=== PATIENT | female | born 1980 | race Caucasian/White ===

== ENCOUNTER 2018-01-23 14:33 | Emergency (ER) | payer MEDICAID ==
[~2018-01-23] VITALS: Ht 160 cm; Wt 95.0 kg
[~2018-01-23 14:33] MED LIST: ALBU18HF2 INH; FLUT16SP2 BOTHNARES; HYDR-4353 PO; IBUP-1985 PO; OMEP20TA5 PO; TRAM50TA2 PO
[2018-01-23 14:42] VITALS: BP 119/56
== END 2018-01-23 16:09 | disposition home or self-care (01) ==
LOC: ER 14:33
DX: S82.65XA Nondisplaced fracture of lateral malleolus of left fibula, initial encounter for closed fracture (principal); J45.909 Unspecified asthma, uncomplicated; R55 Syncope and collapse; I95.9 Hypotension, unspecified; Z88.2 Allergy status to sulfonamides; Z79.899 Other long term (current) drug therapy; Z87.440 Personal history of urinary (tract) infections; X50.1XXA Overexertion from prolonged static or awkward postures, initial encounter; Y93.89 Activity, other specified; Y92.89 Other specified places as the place of occurrence of the external cause; Y99.8 Other external cause status
CPT/HCPCS: 73590; 73610; 99284

== ENCOUNTER 2018-05-30 02:23 | Emergency (ER) | payer MEDICAID ==
[~2018-05-30] VITALS: Ht 160 cm; Wt 89.3 kg
[2018-05-30] MEDS ORDERED: ondansetron/PF 4mg/2ml inj IV ONE (02:55)
[2018-05-30] MEDS ORDERED: pantoprazole 40 MG vial IV ONE (02:55)
[2018-05-30] MEDS ORDERED: normal saline 1000ML IV soln IVB ONE (02:55)
[2018-05-30] MEDS ORDERED: morphine 4 MG/ML inj SYRINge IV ONE (02:55)
[2018-05-30] MEDS ORDERED: famotidine/PF 10 mg/ml inj IV ONE (02:55)
[2018-05-30 03:12] LABS: BASOPHILS # (AUTO) 0.1 X10'3 (0-0.2); BASOPHILS % (AUTO) 0.6 % (0-1); EOSINOPHILS # (AUTO) 0.1 X10'3 (0-0.9); EOSINOPHILS % (AUTO) 1.1 % (0-6); HEMOGLOBIN 13.4 g/dl (12.0-16.0); LYMPHOCYTES # (AUTO) 2.1 X10'3 (1.1-4.8); LYMPHOCYTES % (AUTO) 14.9 % (21-51); MEAN CORPUSCULAR HEMOGLOBIN 28.3 PG (27.0-31.0); MEAN CORPUSCULAR HGB CONC 33.4 g/dL (33.0-36.5); MEAN CORPUSCULAR VOLUME 84.6 FL (78-98); MEAN PLATELET VOLUME 7.4 FL (7.4-10.4); MONOCYTES # (AUTO) 0.7 X10'3 (0-0.9); MONOCYTES % (AUTO) 5.2 % (2-12); NEUTROPHILS # (AUTO) 10.9 X10'3 (1.8-7.7); NEUTROPHILS % (AUTO) 78.2 % (42-75); PLATELET COUNT 350 X10'3 (140-440); RED BLOOD COUNT 4.73 X10'6 (4.20-5.60); RED CELL DISTRIBUTION WIDTH 13.9 % (11.5-14.5)
[2018-05-30 03:14] LABS: CLARITY,URINE CLEAR (Clear); COLOR,URINE YELLOW (Yellow); GLUCOSE, URINE NEGATIVE (Neg); KETONES,URINE NEGATIVE (Neg); LEUKOCYTE ESTERASE ,URINE NEGATIVE (Neg); NITRITES, URINE NEGATIVE (Neg); OCCULT BLOOD,URINE LARGE (Neg); PROTEIN,URINE TRACE mg/dl (Neg); URINE HCG NEGATIVE (NEG); UROBILINOGEN,URINE 0.2 E.U/dL (0.2-1.0)
[2018-05-30 03:19] LABS: UA COLLECTION TYPE CLN CATCH MIDSTREAM
[2018-05-30 03:21] LABS: ALANINE AMINOTRANSFERASE 22 U/L (12-78); ALBUMIN 3.8 G/DL (3.4-5.0); ALBUMIN/GLOBULIN RATIO 1.1 (1.1-1.5); ALKALINE PHOSPHATASE 75 IU/L (46-116); ANION GAP 10 (8-16); ASPARTATE AMINO TRANSFERASE 15 U/L (10-37); BILIRUBIN,TOTAL 0.3 MG/DL (0.1-1.0); BLOOD UREA NITROGEN 24 MG/DL (7-18); BUN/CREATININE RATIO 20.9 (6.6-38.0); CALCIUM 9.5 MG/DL (8.5-10.1); CHLORIDE 104 MMOL/L (99-107); CREATININE 1.15 MG/DL (0.40-0.90); GLUCOSE 123 MG/DL (70-104); POTASSIUM 3.2 MMOL/L (3.5-5.1); SODIUM 140 MMOL/L (135-145); TOTAL CARBON DIOXIDE 25.6 MMOL/L (24-32); TOTAL PROTEIN 7.3 G/DL (6.4-8.2); eGFR 53 ML/MIN
[2018-05-30 03:21] LABS: MUCUS STRANDS FEW /LPF (Neg); SQUAMOUS EPITHELIAL CELL,UR MANY /LPF (FEW)
[2018-05-30 03:22] LABS: COARSE GRANULAR CAST 0-3 /LPF (NEGATIVE)
[2018-05-30 03:30] LABS: BACTERIA,URINE 1+ /HPF (Neg); WBC,URINE 0-4 /HPF (0-4); YEAST MODERATE /HPF (NEGATIVE)
[2018-05-30] MEDS ORDERED: ketorolac trometh. 30mg/ml inj. IV ONE (03:45)
[2018-05-30] MEDS ORDERED: haloperidol lactate 5mg/ml inj IM ONE (03:50)
[2018-05-30] MEDS ORDERED: LORazepam 2 mg/ml vial IV ONE (03:50)
[2018-05-30] MEDS ORDERED: metoclopramide 5 mg/ml inj IV ONE (03:50)
[2018-05-30] MEDS ORDERED: potassium Cl 20 mEq SR tablet PO STA (04:29)
[2018-05-30 04:50] LABS: URINE AMPHETAMINE SCREEN NEGATIVE (Neg); URINE BARBITUATE SCREEN NEGATIVE (Neg); URINE BENZODIAZEPINES SCREEN NEGATIVE (Neg); URINE CANNABINOID SCREEN NEGATIVE (Neg); URINE COCAINE SCREEN NEGATIVE (Neg); URINE METHADONE SCREEN NEGATIVE (Neg); URINE OPIATE SCREEN NEGATIVE (Neg); URINE PHENCYCLIDINE SCREEN NEGATIVE (Neg)
[2018-05-30] MEDS ORDERED: KETO10TA2 PO (05:44)
[2018-05-30] MEDS ORDERED: HYDR-4353 PO (05:44)
[2018-05-30] MEDS ORDERED: TADA20TA PO (05:44)
[2018-05-30] MEDS ORDERED: ONDA4TAB6 PO (05:44)
--- NOTE | 2018-05-30 06:01 | NUR ---
DR MACK TALKING WITH PT ABOUT DC PLAN. PT CALLING HER TO COME GET HER. PT REPORTS MINIMAL PAIN NOW.
[2018-05-30 06:04] VITALS: BP 111/71
--- NOTE | 2018-05-30 07:00 | NUR ---
HERE FOR DISCHARGE. DISCHARGE PAPERWORK WITH PATIENT BELONGINGS. GETTING DRESSED FOR DEPARTURE. IV REMOVED WITH TIP INTACT.
== END 2018-05-30 07:02 | disposition home or self-care (01) ==
LOC: ER 02:23
DX: E87.6 Hypokalemia (principal); N13.2 Hydronephrosis with renal and ureteral calculous obstruction; R11.10 Vomiting, unspecified; J45.909 Unspecified asthma, uncomplicated; Z88.2 Allergy status to sulfonamides; Z79.899 Other long term (current) drug therapy
CPT/HCPCS: 36415; 74176; 80053; 80305; 81001; 81025; 85025; 96361; 96372; 96374; 96375; 99284; C9113; J1630; J1885; J2060; J2270; J2405; J2765; J3490; J7030

== ENCOUNTER 2020-05-22 19:45 | Emergency (ER) | payer MEDICAID ==
[~2020-05-22] VITALS: Ht 160 cm; Wt 77.2 kg
[~2020-05-22 19:45] MED LIST changes: +KETO10TA2 PO; +ONDA4TAB6 PO; +TADA20TA PO
--- NOTE | 2020-05-22 20:07 | NUR ---
report: [id number]
== END 2020-05-22 22:29 | disposition home or self-care (01) ==
LOC: ER 19:46
DX: S66.911A Strain of unspecified muscle, fascia and tendon at wrist and hand level, right hand, initial encounter (principal); J45.909 Unspecified asthma, uncomplicated; Z87.440 Personal history of urinary (tract) infections; Z88.2 Allergy status to sulfonamides; Z79.899 Other long term (current) drug therapy; Y04.8XXA Assault by other bodily force, initial encounter; Y93.89 Activity, other specified; Y92.89 Other specified places as the place of occurrence of the external cause; Y99.8 Other external cause status
CPT/HCPCS: 73090; 73130; 99284

== ENCOUNTER 2020-12-05 21:04 | Emergency (ER) | payer MEDICAID ==
[~2020-12-05] VITALS: Ht 160 cm; Wt 80.0 kg
[2020-12-05 21:18] VITALS: BP 138/80
[2020-12-05] MEDS ORDERED: ketorolac tromethamine 15mg/ml inj. IM ONE (21:55)
== END 2020-12-05 22:48 | disposition home or self-care (01) ==
LOC: ER 21:04
DX: M25.571 Pain in right ankle and joints of right foot (principal); J45.909 Unspecified asthma, uncomplicated; Z87.440 Personal history of urinary (tract) infections; Z88.2 Allergy status to sulfonamides; Z79.899 Other long term (current) drug therapy
CPT/HCPCS: 29505; 73564; 96372; 99283; J1885

== ENCOUNTER 2022-08-31 00:41 | Emergency (ER) | payer MEDICAID ==
[~2022-08-31] VITALS: Ht 160 cm; Wt 80.0 kg
[~2022-08-31 00:41] MED LIST changes: +OMEP20TA43 PO; -OMEP20TA5 PO
[2022-08-31 01:11] LABS: CLARITY,URINE SLIGHTLY CLOUDY (Clear); COLOR,URINE YELLOW (Yellow); GLUCOSE, URINE NEGATIVE (Neg); KETONES,URINE NEGATIVE (Neg); LEUKOCYTE ESTERASE ,URINE NEGATIVE (Neg); NITRITES, URINE NEGATIVE (Neg); OCCULT BLOOD,URINE LARGE (Neg); PROTEIN,URINE NEGATIVE (Neg); UROBILINOGEN,URINE 0.2 E.U/dL (0.2-1.0)
[2022-08-31 01:13] LABS: BASOPHILS # (AUTO) 0.1 X10'3 (0-0.2); BASOPHILS % (AUTO) 0.5 % (0-1); EOSINOPHILS # (AUTO) 0.2 X10'3 (0-0.9); EOSINOPHILS % (AUTO) 1.6 % (0-6); HEMATOCRIT 38.1 % (35.0-45.0); HEMOGLOBIN 12.9 g/dl (12.0-16.0); LYMPHOCYTES # (AUTO) 2.9 X10'3 (1.1-4.8); LYMPHOCYTES % (AUTO) 28.5 % (21-51); MEAN CORPUSCULAR HEMOGLOBIN 30.1 PG (27.0-31.0); MEAN CORPUSCULAR VOLUME 88.6 FL (78-98); MEAN PLATELET VOLUME 7.8 FL (7.4-10.4); MONOCYTES # (AUTO) 0.8 X10'3 (0-0.9); MONOCYTES % (AUTO) 7.3 % (2-12); NEUTROPHILS # (AUTO) 6.4 X10'3 (1.8-7.7); NEUTROPHILS % (AUTO) 62.1 % (42-75); PLATELET COUNT 329 X10'3 (140-440); RED CELL DISTRIBUTION WIDTH 12.7 % (11.5-14.5); WHITE BLOOD COUNT 10.4 X10'3 (4.5-11.0)
[2022-08-31 01:15] LABS: URINE HCG NEGATIVE (NEG)
--- NOTE | 2022-08-31 01:16 | NUR ---
PT C/O ABD "SWELLING" X3 WEEKS, LAST BM TODAY WAS "HARD", CONSTIPATED SINCE APR. WHEN SHE FELT ROOMMATE PUT IMMODIUM IN HER FOOD. HAS BEEN TAKING STOOL SOFTNERS AND LAXATIVES WITH LITTLE RELIEF
[2022-08-31 01:17] LABS: UA COLLECTION TYPE CLN CATCH MIDSTREAM
[2022-08-31 01:19] LABS: MUCUS STRANDS FEW /LPF (Neg)
[2022-08-31 01:20] LABS: BACTERIA,URINE 1+ /HPF (Neg); RBC,URINE TNTC /HPF (0-2)
[2022-08-31 01:21] LABS: SQUAMOUS EPITHELIAL CELL,UR MODERATE /LPF (FEW); TRANSITIONAL EPI CELLS,URINE FEW /HPF; WBC,URINE 0-4 /HPF (0-4)
[2022-08-31 01:24] LABS: ALANINE AMINOTRANSFERASE 24 U/L (12-78); ALBUMIN 3.8 G/DL (3.4-5.0); ALBUMIN/GLOBULIN RATIO 1.2 (1.1-1.5); ALKALINE PHOSPHATASE 58 IU/L (46-116); ANION GAP 11 (8-16); ASPARTATE AMINO TRANSFERASE 16 U/L (10-37); BILIRUBIN,TOTAL 0.4 MG/DL (0.1-1.0); BLOOD UREA NITROGEN 20 MG/DL (7-18); BUN/CREATININE RATIO 14.8 (10.0-20.0); CALCIUM 8.5 MG/DL (8.5-10.1); CHLORIDE 106 MMOL/L (99-107); CREATININE 1.35 MG/DL (0.40-0.90); GLUCOSE 100 MG/DL (70-104); LIPASE 152 U/L (73-393); POTASSIUM 3.5 MMOL/L (3.5-5.1); SODIUM 144 MMOL/L (135-145); TOTAL CARBON DIOXIDE 27.1 MMOL/L (24-32); TOTAL PROTEIN 6.9 G/DL (6.4-8.2); eGFR 43 ML/MIN
[2022-08-31] MEDS ORDERED: bisacodyl 5mg tablet.DR PO ONE (01:50)
--- NOTE | 2022-08-31 02:43 | NUR ---
FLEETS ENEMA DONE, COMMODE AT BEDSIDE
--- NOTE | 2022-08-31 03:00 | NUR ---
Dr Cochran aware pt has not had bowel movement since fleets enema and she wishes to go home
[2022-08-31] MEDS ORDERED: ONDA8TAB13 PO (03:11)
[2022-08-31 03:26] VITALS: BP 148/91
== END 2022-08-31 03:29 | disposition home or self-care (01) ==
LOC: ER 00:42
DX: K59.00 Constipation, unspecified (principal); J45.909 Unspecified asthma, uncomplicated; Z98.890 Other specified postprocedural states; Z88.2 Allergy status to sulfonamides; Z79.899 Other long term (current) drug therapy
CPT/HCPCS: 36415; 74018; 80053; 81001; 81025; 83690; 85025; 99284

== ENCOUNTER 2024-03-01 16:31 | Emergency (ER) | payer MEDICAID ==
[~2024-03-01] VITALS: Ht 157.5 cm; Wt 85.2 kg
[~2024-03-01 16:31] MED LIST changes: +ONDA-245 PO
[2024-03-01 16:32] VITALS: BP 135/71; PULSE 99; O2SAT 98
[2024-03-01 19:26] VITALS: RESP 16
[2024-03-01] MEDS: ketorolac trometh 30MG/ML vial 30 MG/ML VIAL IM ONE (19:26)
[2024-03-01 19:39] VITALS: TEMP 98.2
== END 2024-03-01 19:44 | disposition home or self-care (01) ==
LOC: ER 16:32
DX: T74.21XA Adult sexual abuse, confirmed, initial encounter (principal); M25.511 Pain in right shoulder; J34.89 Other specified disorders of nose and nasal sinuses; R51.9 Headache, unspecified; J45.909 Unspecified asthma, uncomplicated; Z88.2 Allergy status to sulfonamides; Z79.52 Long term (current) use of systemic steroids; Z79.899 Other long term (current) drug therapy; Z98.890 Other specified postprocedural states; Y04.0XXA Assault by unarmed brawl or fight, initial encounter; Y93.89 Activity, other specified; Y92.89 Other specified places as the place of occurrence of the external cause; Y99.8 Other external cause status
CPT/HCPCS: 70486; 73030; 96372; 99285; J1885

== ENCOUNTER 2024-04-18 16:19 | Emergency (ER) | payer MEDICAID ==
[~2024-04-18] VITALS: Ht 160 cm; Wt 75.3 kg
[2024-04-18 16:25] VITALS: BP 133/66; PULSE 120; RESP 15; O2SAT 100
[2024-04-18] MEDS ORDERED: PERM60CR19 TOP (17:04)
[2024-04-18 17:29] VITALS: TEMP 98.5
== END 2024-04-18 17:09 | disposition home or self-care (01) ==
LOC: ER 16:19
DX: B86 Scabies (principal); J45.909 Unspecified asthma, uncomplicated; Z88.2 Allergy status to sulfonamides; Z98.890 Other specified postprocedural states
CPT/HCPCS: 99282

== ENCOUNTER 2024-07-12 17:35 | Emergency (ER) | payer MEDICAID ==
[~2024-07-12] VITALS: Ht 157.5 cm; Wt 90.1 kg
[~2024-07-12 17:35] MED LIST changes: +PERM60CR27 TOP
--- NOTE | 2024-07-12 18:53 | Physician Documentation ---
History of Present Illness Chief Complaint: Abdominal Pain w/vomiting Stated Complaint: ABD PAIN Time Seen by MD: 18:20 OK to notify your PCP?: Yes Primary Medical Doctor: Dr. Cardenas Source: patient, RN/MD, EMS, RN notes reviewed, EMS notes reviewed, old records Mode of Arrival: EMS Exam Limitations: no limitations HPI This patient has a longstanding history of abdominal pain, constipation. 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 Also family members all have GI issues. She has not had a colonoscopy. She denies any bloody stools or dark stools. Patient states since March on and off she has been having pain but the constipation pain is usually periumbilical or epigastric area this time her pains right lower quadrant. He has not appendix. Her pain comes and goes. She has been taking extra prune juice thinking that that would help but now it seems to be swelling in severe in the right lower quadrant so she came in for evaluation. She denies fevers chills or any other complaints at this time. She has been taking all of her regular remedies for constipation. She was assumes that is her diagnosis except the pain location and character is different Medication Reconciliation Allergies: Coded Allergies: Sulfa (Sulfonamide Antibiotics) (Verified Allergy, Intermediate, HIVES, 01/23/18) Scheduled Albuterol Sulfate (Ventolin Hfa), 2 PUFFS INH Q4HPRN, (Reported) Fluticasone Propionate (Flonase), 2 SPRAYS BOTHNARES DAILY, (Reported) Hydrocodone Bit/Acetaminophen ([place] 10-325 Tablet), 1 TAB PO QID PRN, (Reported) Ketorolac Tromethamine (Ketorolac Tromethamine), 1 TAB PO Q8H Omeprazole (Omeprazole), 1 TAB PO DAILY, (Reported) Ondansetron 8mg ODT (Ondansetron Odt), 1 TAB PO Q6H Permethrin 5% Cream* (Elimite 5% Cream*), 1 APPLIC TOP ONCE Tadalafil (Cialis), 1 TAB PO DAILY Tramadol HCl (Tramadol HCl), 1 TABLET PO Q4H, (Reported) Scheduled PRN Ibuprofen (Ibuprofen), 1 TAB PO Q8H PRN for pain, (Reported) Ondansetron Hcl (Zofran), 1 TAB PO Q6H PRN for nausea/vomiting Past Medical History Past Medical History: Asthma, Constipation, UTI Past Surgical History: orthopedic surgeries Alcohol Use: None Drug Use: none Lives with: Spouse Lives In: Home Review of Systems All Other Systems at this time: Reviewed and Negative Physical Exam Vital Signs: RN Vital Signs have been reviewed: Yes, Temperature: 98.1, Source: Oral, Heart Rate: 75, Respiratory Rate: 18, BP: 134/70, Pulse Oximetry: 98, Weight: 90.100 Oxygen Flow Rate: 0 Pulse Oximetry Reflects: adequate oxygenation Physical Exam General: The patient is well developed, well nourished, nontoxic appearing and is in no acute distress. Skin: [place], warm and dry with no rashes. HEENT: Head was normocephalic and atraumatic. Chest: Clear to auscultation bilaterally without wheezes, rales or rhonchi. No accessory muscle use. No dullness to percussion. Heart: Rate regular and rhythmic. S1, S2. No murmurs. Palpation of the chest wall was normal. No rubs or thrills. Abdomen: Mild RLQ TTP. Soft, nondistended. Positive bowel sounds. No guarding or rebound. No peritoneal signs. Extremities: No cyanosis, clubbing or edema. The patient moves all extremities. Pulses were equal and symmetric. Neurologic: Motor and sensation grossly intact. Cranial nerves II-XII grossly intact. A & O x4. Psychologic: Normal mood and affect. No agitation. Progress Results/Orders Reviewed/noted all lab results: Yes Results/Orders Orders - ISIAH CONTRERAS MD Abdomen,Single View(Kub) (07/12/24 18:50) Vital Signs 07/12/24 07/12/24 17:43 18:22 Temp 98.2 98.1 Pulse 74 75 Resp 18 18 B/P (MAP) 134/74 134/70 (91) Pulse Ox 99 98 O2 Flow Rate 0 Re-Evaluation Re-Evaluation : Re-Evaluation: Improved Progress Patient was seen and examined. Patient was given reassurance. The patient had an x-ray at showed increased stool burden without air-fluid levels. Physical exam shows no peritonitis patient has a history of constipation. IV lines were established patient was given 2 L of fluids as well as lactulose later after laboratory work was obtained and the patient had a low magnesium level patient received 4 g of magnesium including max oxide and lactulose solution. Patient has tried to have a bowel movement a few times. Ultimately patient was discharged we talked about diet and oral intake of fluids in the need to follow up with the primary care physician and ultimately a colonoscopy in the future. Continuous certified nurse aide interpretation shows normal sinus rhythm heart rate 70s, no ectopy, normal, my interpretation. Pulse oximetry monitor interpretation shows normal oxygenation 99% room air, normal, my interpretation. Physical exam is reassuring as are labs. At this time I do not feel CT scan is necessary. Patient has multiple home remedies and I discussed the need to titrate up her home remedies and to drink plenty of fluids. X-ray is reassuring for no obstruction. ER precautions discussed. Symptoms inconsistent with diverticulitis/appendicitis/cholecystitis Include: AAA, Aortic dissection, Appendicitis, Bowel obstruction, Constipation, Diverticular disease, Ectopic , Gastroenteritis EKG/XRAY/CT/US/VASC/MRI Abdominal X-Ray : Additional Comment Date: 07/12/2024 06:54 PM Examination: DI ABDOMEN,SINGLE VIEW(KUB) History: pain Comparison: ABDOMEN,SINGLE VIEW(KUB) on DOS: 08/31/22 TECHNIQUE: Frontal views of the abdomen was obtained. FINDINGS: Bowel gas pattern is unremarkable. The lung bases are unremarkable. No acute osseous abnormality identified. IMPRESSION: 1. Nonobstructive bowel gas pattern. Reviewed by me, Dr. Contreras. Medical Decision Making Additional info obtained from: old records Differential Dx:Considerations: Include: Bowel obstruction, Cholelithasis, Constipation, Gastritis/PUD, Gastroenteritis, GI hemorrhage, Hernia, Hepatitis, Inflammatory BD, Ischemic bowel, Pancreatitis, Other Departure Time of Disposition: 22:12 Disposition: 01 HOME / SELF CARE / HOMELESS Impression: Primary Impression: Acute on chronic constipation Additional Impressions: RLQ abdominal pain Hypomagnesemia Condition: Stable Discharge Instructions: Abdominal Pain, Adult, Constipation, Adult, [id number] Additional Instructions: Go xbit-[id number]-lipbewt magnesium supplements. Drink plenty of fluids. Follow up with your regular doctor. Return to the ER for new or worsening symptoms or other concerns. Education Educated: Patient Educated regarding: diagnosis, treatment, need for follow up Signature Scribe Signature: Scribed for Isiah Contreras MD by Eddie Bashir . 07/12/24 19:31 Attestation: The note accurately reflects work and decisions made by me.Isiah Contreras MD 07/12/24 19:08 ISIAH CONTRERAS MD July 12, 2024 18:53 EDDIE ANDREWS July 12, 2024 19:34
[2024-07-12] MEDS: bisacodyl 10mg suppository rectal RC ONE (19:16)
[2024-07-12] MEDS: normal saline 1000ML IV soln IVB ONE (19:16)
[2024-07-12] MEDS: normal saline 1000ml 1,000 ML IV ONE (19:16)
[2024-07-12] MEDS: lactulose 20gm/30ml cup PO ONE ×2 (19:16→22:24)
--- NOTE | 2024-07-12 19:25 | RADIOLOGY REPORT ---
Date: 07/12/2024 06:54 PM Examination: DI ABDOMEN,SINGLE VIEW(KUB) History: pain Comparison: ABDOMEN,SINGLE VIEW(KUB) on DOS: 08/31/22 TECHNIQUE: Frontal views of the abdomen was obtained. FINDINGS: Bowel gas pattern is unremarkable. The lung bases are unremarkable. No acute osseous abnormality identified. IMPRESSION: 1. Nonobstructive bowel gas pattern.
[2024-07-12 19:26] LABS: BASOPHILS # (AUTO) 0.1 X10'3 (0-0.2); BASOPHILS % (AUTO) 0.9 % (0-1); EOSINOPHILS # (AUTO) 0.1 X10'3 (0-0.9); EOSINOPHILS % (AUTO) 1.9 % (0-6); HEMATOCRIT 36.9 % (35.0-45.0); HEMOGLOBIN 12.6 g/dl (12.0-16.0); LYMPHOCYTES # (AUTO) 1.7 X10'3 (1.1-4.8); LYMPHOCYTES % (AUTO) 21.7 % (21-51); MEAN CORPUSCULAR HEMOGLOBIN 29.7 PG (27.0-31.0); MEAN CORPUSCULAR HGB CONC 34.2 g/dL (33.0-36.5); MEAN CORPUSCULAR VOLUME 86.9 FL (78-98); MONOCYTES # (AUTO) 0.5 X10'3 (0-0.9); MONOCYTES % (AUTO) 6.7 % (2-12); NEUTROPHILS # (AUTO) 5.5 X10'3 (1.8-7.7); NEUTROPHILS % (AUTO) 68.8 % (42-75); PLATELET COUNT 340 X10'3 (140-440); RED BLOOD COUNT 4.24 X10'6 (4.20-5.60); RED CELL DISTRIBUTION WIDTH 12.7 % (11.5-14.5)
[2024-07-12 19:31] LABS: ALBUMIN 3.5 G/DL (3.4-5.0); ANION GAP 9 (8-16); BLOOD UREA NITROGEN 26 MG/DL (7-18); BUN/CREATININE RATIO 18.3 (10.0-20.0); CALCIUM 9.3 MG/DL (8.5-10.1); CHLORIDE 105 MMOL/L (99-107); CREATININE 1.42 MG/DL (0.40-0.90); GLUCOSE 111 MG/DL (70-104); LIPASE 30 U/L (16-77); MAGNESIUM 1.3 MG/DL (1.5-2.4); POTASSIUM 3.7 MMOL/L (3.5-5.1); SODIUM 140 MMOL/L (135-145); TOTAL CARBON DIOXIDE 26.5 MMOL/L (24-32); eCRCL 41 ML/MIN; eGFR 41 ML/MIN
[2024-07-12] MEDS: magnesium sulf-water 4G/100mL 100 ML IV ONE (19:56)
[2024-07-12] MEDS: magnesium oxide 400mg tablet PO ONE (19:56)
[2024-07-12 22:15] VITALS: TEMP 98.1
[2024-07-12 22:27] VITALS: BP 121/72; PULSE 64; RESP 16; O2SAT 100
== END 2024-07-12 23:53 | disposition home or self-care (01) ==
LOC: ER 17:35
DX: K59.09 Other constipation (principal); E83.42 Hypomagnesemia; J45.909 Unspecified asthma, uncomplicated; Z88.2 Allergy status to sulfonamides; Z88.8 Allergy status to other drugs, medicaments and biological substances
CPT/HCPCS: 36415; 74018; 80048; 83690; 83735; 85025; 96361; 96365; 96366; 99284; J3475; J7030

== ENCOUNTER 2024-09-01 16:32 | Emergency (ER) | payer MEDICAID ==
[~2024-09-01] VITALS: Ht 160 cm; Wt 86.4 kg
[2024-09-01 16:39] VITALS: BP 144/63; PULSE 87; RESP 18; TEMP 98.4; O2SAT 100
--- NOTE | 2024-09-01 16:54 | Physician Documentation ---
History of Present Illness Chief Complaint: Abdominal Pain Stated Complaint: "I HAVE STONES IN MY BM" Primary Medical Doctor: Dr. Cardenas [facility] This is a 44-year-old female who presents with the abdominal pain, patient reports that she passed some hard material in her stools, patient reports that she contacted her GI doctor who instructed her to present to the emergency department. Medication Reconciliation Allergies: Coded Allergies: Sulfa (Sulfonamide Antibiotics) (Verified Allergy, Intermediate, HIVES, 01/23/18) Scheduled Albuterol Sulfate (Ventolin Hfa), 2 PUFFS INH Q4HPRN, (Reported) Fluticasone Propionate (Flonase), 2 SPRAYS BOTHNARES DAILY, (Reported) Hydrocodone Bit/Acetaminophen ([place] 10-325 Tablet), 1 TAB PO QID PRN, (Reported) Ketorolac Tromethamine (Ketorolac Tromethamine), 1 TAB PO Q8H Omeprazole (Omeprazole), 1 TAB PO DAILY, (Reported) Ondansetron 8mg ODT (Ondansetron Odt), 1 TAB PO Q6H Permethrin 5% Cream* (Elimite 5% Cream*), 1 APPLIC TOP ONCE Tadalafil (Cialis), 1 TAB PO DAILY Tramadol HCl (Tramadol HCl), 1 TABLET PO Q4H, (Reported) Scheduled PRN Ibuprofen (Ibuprofen), 1 TAB PO Q8H PRN for pain, (Reported) Ondansetron Hcl (Zofran), 1 TAB PO Q6H PRN for nausea/vomiting Past Medical History Past Medical History: Asthma, Constipation, UTI Past Surgical History: orthopedic surgeries Alcohol Use: None Drug Use: none Lives with: Spouse Lives In: Home Review of Systems ROS As stated above in the HPI, otherwise all systems are reviewed and negative. Physical Exam Vital Signs: Temperature: 98.4, Source: Temporal, Heart Rate: 87, Respiratory Rate: 18, BP: 144/63, Pulse Oximetry: 100, Weight: 86.360 Oxygen Flow Rate: 0 Physical Exam VITALS: Reviewed and as above. GENERAL: Alert, nontoxic appearing, no apparent distress. RESPIRATORY: No increased work of breathing, no respiratory distress, speaking in full clear sentences Progress Results/Orders Results/Orders Vital Signs 09/01/24 16:39 Temp 98.4 Pulse 87 Resp 18 B/P (MAP) 144/63 Pulse Ox 100 O2 Flow Rate 0 Medical Decision Making Findings MSE performed in triage and patient returned to ED lobby by nursing staff to await available ED room, patient appears to have eloped Differential Dx:Considerations: Include: Appendicitis, Bowel obstruction, Constipation, Diverticular disease, Inflammatory BD, Ischemic bowel, Urinary obstruction, Urinary tract infection, Urolithiasis Departure Disposition: LEFT AWOL/ELOPED Impression: Primary Impression: Foreign body Referrals: NO PRIMARY CARE PROVIDER (PCP) Signature Scribe Signature: No scribe Attestation: The note accurately reflects work and decisions made by me.JUN Gandhi 09/04/24 22:17 GARIMA ORTEGA Sep 01, 2024 16:54
[2024-09-01 17:39] LABS: BASOPHILS # (AUTO) 0.1 X10'3 (0-0.2); BASOPHILS % (AUTO) 0.7 % (0-1); EOSINOPHILS # (AUTO) 0.2 X10'3 (0-0.9); EOSINOPHILS % (AUTO) 2.4 % (0-6); HEMOGLOBIN 12.2 g/dl (12.0-16.0); LYMPHOCYTES # (AUTO) 2.5 X10'3 (1.1-4.8); LYMPHOCYTES % (AUTO) 26.1 % (21-51); MEAN CORPUSCULAR HGB CONC 33.1 g/dL (33.0-36.5); MEAN CORPUSCULAR VOLUME 87.6 FL (78-98); MEAN PLATELET VOLUME 7.8 FL (7.4-10.4); MONOCYTES # (AUTO) 0.5 X10'3 (0-0.9); MONOCYTES % (AUTO) 5.1 % (2-12); NEUTROPHILS # (AUTO) 6.3 X10'3 (1.8-7.7); NEUTROPHILS % (AUTO) 65.7 % (42-75); PLATELET COUNT 321 X10'3 (140-440); RED BLOOD COUNT 4.22 X10'6 (4.20-5.60); RED CELL DISTRIBUTION WIDTH 13.3 % (11.5-14.5); WHITE BLOOD COUNT 9.7 X10'3 (4.5-11.0)
[2024-09-01 17:59] LABS: ALANINE AMINOTRANSFERASE 19 U/L (12-78); ALBUMIN 3.5 G/DL (3.4-5.0); ALBUMIN/GLOBULIN RATIO 1.1 (1.1-1.5); ALKALINE PHOSPHATASE 76 IU/L (46-116); ANION GAP 5 (8-16); ASPARTATE AMINO TRANSFERASE 10 U/L (10-37); BILIRUBIN,TOTAL 0.4 MG/DL (0.1-1.0); BLOOD UREA NITROGEN 24 MG/DL (7-18); BUN/CREATININE RATIO 15.9 (10.0-20.0); CALCIUM 8.9 MG/DL (8.5-10.1); CHLORIDE 103 MMOL/L (99-107); CREATININE 1.51 MG/DL (0.40-0.90); GLUCOSE 106 MG/DL (70-104); LIPASE 26 U/L (16-77); POTASSIUM 3.7 MMOL/L (3.5-5.1); SODIUM 137 MMOL/L (135-145); TOTAL CARBON DIOXIDE 28.6 MMOL/L (24-32); TOTAL PROTEIN 6.8 G/DL (6.4-8.2); eCRCL 40 ML/MIN; eGFR 38 ML/MIN
[2024-09-01 18:36] LABS: BILIRUBIN,URINE NEGATIVE (Neg); CLARITY,URINE CLEAR (Clear); COLOR,URINE YELLOW (Yellow); GLUCOSE, URINE NEGATIVE (Neg); KETONES,URINE NEGATIVE (Neg); LEUKOCYTE ESTERASE ,URINE NEGATIVE (Neg); NITRITES, URINE NEGATIVE (Neg); OCCULT BLOOD,URINE MODERATE (Neg); PROTEIN,URINE NEGATIVE (Neg); UROBILINOGEN,URINE 0.2 E.U/dL (0.2-1.0)
[2024-09-01 18:37] LABS: URINE HCG NEGATIVE (NEG)
[2024-09-01 18:40] LABS: UA COLLECTION TYPE CLN CATCH MIDSTREAM
[2024-09-01 18:43] LABS: WBC,URINE 0-4 /HPF (0-4)
[2024-09-01 18:44] LABS: BACTERIA,URINE FEW /HPF (Neg); MUCUS STRANDS FEW /LPF (Neg); SQUAMOUS EPITHELIAL CELL,UR FEW /LPF (FEW)
== END 2024-09-01 23:03 | disposition left against medical advice (07) ==
LOC: ER 16:32
DX: R10.9 Unspecified abdominal pain (principal); J45.909 Unspecified asthma, uncomplicated; Z88.2 Allergy status to sulfonamides; Z79.899 Other long term (current) drug therapy
CPT/HCPCS: 36415; 80053; 81001; 81025; 83690; 85025; 99283

== ENCOUNTER 2024-09-17 10:54 | Outpatient (CLI) | payer MEDICAID ==
--- NOTE | 2024-09-17 11:42 | RADIOLOGY REPORT ---
Indication: ABDOMINAL PAIN Technique: CT axial images of the abdomen and pelvis are obtained with intravenous contrast. Coronal and sagittal reformats were obtained. Radiation Dose Information: CTDI volume is 26.5 mGy. Dose-length product is 1373 mGy*cm Comparison: None FINDINGS: Lung bases demonstrate no pleural effusion. Adrenal glands, spleen, pancreas unremarkable. Liver unremarkable in shape. No CT evidence for tye lithiasis. The kidneys demonstrate no hydronephrosis. Nonobstructing right renal calculus measuring 3 mm. The stomach is partially distended. Small bowel loops are normal in caliber. Moderate volume stool in the colon. No secondary signs for appendicitis. Bladder partially distended. No free pelvic fluid. No inguinal lymphadenopathy. Mild thoracolumbar degenerative disc disease. IMPRESSION: Moderate volume stool in the colon. Nonobstructing right renal calculus measuring 3 mm
== END 2024-09-17 23:59 | disposition home or self-care (01) ==
LOC: RAD 10:54
PROVIDERS: ATTEND Nurse Practitioner Family
DX: N20.0 Calculus of kidney (principal); N32.89 Other specified disorders of bladder; K31.89 Other diseases of stomach and duodenum; R10.9 Unspecified abdominal pain; M51.35 Other intervertebral disc degeneration, thoracolumbar region
CPT/HCPCS: 74176